=== PATIENT | female | born 1960 | race Caucasian/White ===

== ENCOUNTER 2018-05-03 13:54 | Outpatient (CLI) | payer BC ==
--- NOTE | 2018-05-03 15:11 | BD ---
BONE DENSITOMETRY USING DEXA: Date: 05/03/18 HISTORY: Postmenopausal screening for osteoporosis. FINDINGS: Lumbar Spine: BMD (g/cm2) L1 0.772 T-Score: -2.0 Z-Score: -0.9 L2 0.794 T-Score: -2.1 Z-Score: -0.9 L3 0.816 T-Score: -2.4 Z-Score: -1.2 L4 0.830 T-Score: -2.1 Z-Score: -0.8 L1-L4 0.804 T-Score: -2.2 Z-Score: -1.0 Femoral Neck: 0.649 T-Score: -1.8 Z-Score: -0.6 Total Femur: 0.760 T-Score: -1,5 Z-Score: -0.7 The 10 year fracture risk for a major osteoporotic fracture is 7.8% and for a hip fracture is 0.8%. IMPRESSION: Osteopenia. POS: [facility]
== END 2018-05-03 13:55 | disposition home or self-care (01) ==
LOC: BICMAMMO 13:54
PROVIDERS: ATTEND Internal Medicine Pulmonary Disease
DX: Z12.31 Encounter for screening mammogram for malignant neoplasm of breast (principal); Z13.820 Encounter for screening for osteoporosis; M85.89 Other specified disorders of bone density and structure, multiple sites
CPT/HCPCS: 77063; 77067; 77080

== ENCOUNTER 2023-02-13 12:58 | Outpatient (CLI) | payer BC | END 2023-02-13 12:59 | disposition home or self-care (01) | LOC: BICMAMMO 12:58 | PROVIDERS: ATTEND Internal Medicine Pulmonary Disease | DX: Z12.31 Encounter for screening mammogram for malignant neoplasm of breast (principal) | CPT/HCPCS: 77063; 77067 ==